=== PATIENT | male | born 1960 | race Caucasian/White ===

== ENCOUNTER → 2017-01-01 | Outpatient (CLI) | payer OTHER ==
--- NOTE | 2017-01-01 11:56 | DX ---
PA and Lateral Chest - January 01, 2017 Indication: Chest pain and fullness. Evaluate for pneumonia. Comparison: None Findings: The lungs are well aerated and clear. No airspace consolidation, edema, pulmonary nodule, o r mass. The heart size is normal. Descending thoracic aorta is minimally tortuous. Thoracic spine has minimal multilevel degenerative disk disease. Impression: Clear lungs. No pneumonia or mass.
== END ==
LOC: BMCIMAGING 11:25
PROVIDERS: ATTEND Internal Medicine
DX: R07.89 Other chest pain (principal)

== ENCOUNTER → 2019-05-19 | Outpatient (CLI) | payer OTHER | LOC: BMCIMAGING 16:33 ==